=== PATIENT | female | born 1980 | race African-American/Black ===

== ENCOUNTER 2020-12-14 22:04 | Emergency (ER) | payer MEDICAID, OTHER ==
[~2020-12-14] VITALS: Ht 162.6 cm; Wt 95.0 kg
[2020-12-15] MEDS ORDERED: ACETAMINOPHEN 325MG TABLET PO ONE (00:15)
[2020-12-15 00:22] LABS: BASOPHILS % 1.2 % (0.0-2.0); EOSINOPHILS % 1.6 % (0.0-5.0); HEMOGLOBIN. 8.2 g/dL (12.0-16.0); LYMPHOCYTES % 28.9 % (20.0-50.0); MEAN CORPUSCULAR HEMOGLOBIN 19.8 pg (28.0-32.0); MEAN CORPUSCULAR VOLUME 62.8 fL (81.0-99.0); MEAN PLATELET VOLUME 8.4 fl (7.4-10.4); NEUTROPHILS % 61.3 % (40.0-76.0); PLATELET 689 x1000/uL (130-400); RED BLOOD CELL COUNT 4.15 mill/uL (4.2-5.4); RED CELL DISTRIBUTION WIDTH 18.9 % (11.6-14.6)
[2020-12-15 00:26] LABS: CHLORIDE 105 mEq/L (98-107)
[2020-12-15 00:38] LABS: B-HCG QUANTITATIVE < 1 mIU/mL (<3)
[2020-12-15 01:12] LABS: CLARITY URINE CLEAR (CLEAR); COLOR URINE YELLOW (YELLOW); KETONES URINE NEGATIVE (NEGATIVE); LEUKOCYTE ESTERASE URINE NEGATIVE (NEGATIVE); NITRITE URINE NEGATIVE (NEGATIVE); OCCULT BLOOD URINE 2+ (NEGATIVE); PROTEIN URINE NEGATIVE (NEGATIVE); UROBILINOGEN URINE 0.2 E.U./dL (0.2-1.0)
[2020-12-15] MEDS ORDERED: ACET-2708 MT (02:24)
[2020-12-15 03:30] VITALS: BP 127/64
[2020-12-15 04:58] LABS: PLATELET ESTIMATE INCREASED
== END 2020-12-15 03:30 | disposition home or self-care (01) ==
LOC: ER 22:04
DX: N93.8 Other specified abnormal uterine and vaginal bleeding (principal); M79.671 Pain in right foot; D25.9 Leiomyoma of uterus, unspecified; N83.201 Unspecified ovarian cyst, right side; D64.9 Anemia, unspecified; D47.3 Essential (hemorrhagic) thrombocythemia; R03.0 Elevated blood-pressure reading, without diagnosis of hypertension; G43.909 Migraine, unspecified, not intractable, without status migrainosus; D57.1 Sickle-cell disease without crisis
CPT/HCPCS: 36415; 73610; 76830; 76856; 80053; 81003; 84702; 85025; 86850; 86900; 99285